=== PATIENT | male | born 1970 | race Caucasian/White ===

== ENCOUNTER 2020-06-02 14:50 | Inpatient (IN) | payer OTHER, SELFPAY ==
[~2020-06-02] VITALS: Ht 162.6 cm; Wt 85.7 kg
[2020-06-02 15:00] VITALS: BP 124/90
--- NOTE | 2020-06-02 15:10 | NUR ---
LABS COLLECTED AND SENT TO LAB
--- NOTE | 2020-06-02 15:10 | NUR ---
TAKEN TO BED 2
--- NOTE | 2020-06-02 15:10 | NUR ---
49 YO M [facility] FAM[facility] FOR C/C OF SOB AND COVID SYMPTOMS X2 WEEKS. PT PRESENTS AT 33% ON ROOM AIR, DIAPHOTETIC AND WITH A TEMP OF 102. ERMD/RT CALLED TO BEDSIDE IMMEDIATELY. IV STARTED IMMEDIATELY AT BEDSIDE. PT PLACED ON BIPAP MACHINE AND IS SATING AT 99%. EQUAL CHEST RISE AND FALL. PATIENT ACCESS COORDINATOR PULSE OX IN PLACE. BED LOCKED AND IN LOWEST POSITION. SIDE RAILS X1. Addendum: 06/02/20 at 1800 by [email or web address] 49 YO M [facility] FOR C/C OF SOB AND COVID SYMPTOMS X2 WEEKS. PT PRESENTS AT 33% ON ROOM AIR, DIAPHOTETIC AND WITH A TEMP OF 102.8. ERMD/RT CALLED TO BEDSIDE IMMEDIATELY. IV STARTED IMMEDIATELY AT BEDSIDE. PT PLACED ON BIPAP MACHINE AND IS SATING AT 99%. EQUAL CHEST RISE AND FALL. PATIENT ACCESS COORDINATOR PULSE OX IN PLACE. BED LOCKED AND IN LOWEST POSITION. SIDE RAILS X1.
--- NOTE | 2020-06-02 15:10 | NUR ---
ERMD AND RT AT BEDSIDE FOR PT 33% ON RA
[2020-06-02] MEDS ORDERED: AZITHROMYCIN 500 MG in DEXTROSE 5% 250 ML IV ONE (15:15)
[2020-06-02] MEDS ORDERED: ACETAMINOPHEN EXTRA STRENGTH 500 MG TAB PO ONE (15:15)
[2020-06-02] MEDS ORDERED: DEXAMETHASONE 4 MG/ML VIAL IVP ONE (15:15)
[2020-06-02] MEDS ORDERED: cefTRIAXone 1,000 MG VIAL ONE (15:21)
--- NOTE | 2020-06-02 15:30 | NUR ---
EKG AT BEDSIDE
[2020-06-02 15:38] LABS: BASOPHILS % (AUTO) 0.1 % (0.0-2.0); HEMATOCRIT 39.3 % (36-52); HEMOGLOBIN 13.7 g/dL (12.0-18.0); LYMPHOCYTES # (AUTO) 1.2 K/uL (2.0-11.5); LYMPHOCYTES % (AUTO) 9.1 % (20.5-51.1); MEAN CORPUSCULAR HEMOGLOBIN 29 pg (27-31); MEAN CORPUSCULAR HGB CONC 35 g/dL (33-37); MEAN CORPUSCULAR VOLUME 82.8 fL (80-94); MONOCYTES # (AUTO) 0.6 K/uL (0.8-1.0); MONOCYTES % (AUTO) 4.3 % (1.7-9.3); NEUTROPHILS # (AUTO) 11.1 K/uL (1.8-7.7); NEUTROPHILS % (AUTO) 86.5 % (42.2-75.2); PLATELET COUNT (AUTO) 407 K/uL (140-450); RED BLOOD CELL COUNT(AUTO) 4.75 MIL/uL (4.20-6.10); RED CELL DISTRIBUTION WIDTH 13.9 % (11.6-13.7); WHITE BLOOD COUNT (AUTO) 12.8 K/uL (4.8-10.8)
[2020-06-02] MEDS ORDERED: fentaNYL citrate 0.05 MG/ML VIAL IVP ONE (15:50)
[2020-06-02] MEDS ORDERED: KETOROLAC 30 MG/ML VIAL IVP ONE (15:50)
--- NOTE | 2020-06-02 15:50 | NUR ---
RAD AT BEDSIDE
[2020-06-02 15:53] LABS: ALBUMIN 2.4 g/dL (3.4-5.0); ANION GAP 15.9 (8-16); CARBON DIOXIDE 23.6 mmol/L (21-32); CREATININE 1.3 mg/dL (0.6-1.3); POTASSIUM 3.5 mmol/L (3.5-5.1); TOTAL BILIRUBIN 0.4 mg/dL (0.0-1.0)
[2020-06-02] MEDS ORDERED: NACL 0.9% 1,000 ML IV ONE (16:00)
[2020-06-02 16:04] VITALS: BP 110/77
[2020-06-02 16:04] LABS: APPEARANCE,URINE SL CLOUDY (CLEAR); BILIRUBIN,URINE 1+ (NEGATIVE); BLOOD, URINE 1+ (NEGATIVE); COLOR,URINE YELLOW (YELLOW); LEUKOCYTE ESTERASE ,URINE NEGATIVE (NEGATIVE); NITRITE, URINE NEGATIVE (NEGATIVE); UGLUCOSE NEGATIVE (NEGATIVE)
[2020-06-02 16:05] LABS: PROTHROMBIN TIME 9.9 secs (10.8-13.4)
[2020-06-02 16:11] LABS: CKMB RELATIVE INDEX 0.4 (0.0-2.5); CREATINE KINASE MB 1.7 ng/mL (0-3.6)
[2020-06-02] MEDS ORDERED: ALBUTEROL SULFATE/IPRATROPIU 3 ML SOL IH ONE ×2 (16:20→17:36)
[2020-06-02 16:23] LABS: RBC,URINE 11-20 (MOD) /HPF (0-5); WBC,URINE 0-5 /HPF (0-5)
[2020-06-02 16:25] LABS: C-REACTIVE PROTEIN QUANT 28.6 mg/dL (0.0-0.9)
[2020-06-02] MEDS ORDERED: AZITHROMYCIN 500 MG INJ VIAL IV ONE (16:27)
--- NOTE | 2020-06-02 17:00 | NUR ---
PTS TEMP DECREASED TO 99.0
--- NOTE | 2020-06-02 17:45 | NUR ---
RT AT BEDSIDE PERFORMING INH TREATMENT
--- NOTE | 2020-06-02 18:10 | NUR ---
CHERIE: [phone] SON ASHLEY: [phone]
[2020-06-02] MEDS ORDERED: BENA20TA PO (18:15)
--- NOTE | 2020-06-02 19:18 | NUR ---
REPORT GIVEN TO ALINE SYKES. TRANSFER OF CARE AT THIS TIME.
--- NOTE | 2020-06-02 19:30 | NUR ---
Monica garg in [facility] - 06/03/20 at 0325 by MARLO A/W LAB RESULTS FOR POSSIBLE TRANSFER TO [place].
--- NOTE | 2020-06-02 22:00 | NUR ---
ALL RESULTS BACK AND NOTED BY ERMD AND FOR ADMISSION
--- NOTE | 2020-06-02 22:00 | NUR ---
Patient appears to be resting comfortably in bed. Vital Signs within normal limits. Respirations even and unlabored.ON BI PAP TOLERATING WELL
--- NOTE | 2020-06-02 22:38 | NUR ---
Patient will be admitted to care of DR. HANNAH LENZ. Admited to TELEMETRY. Will go to room 105 B. Belongings list completed.
[2020-06-02] MEDS ORDERED: MORPHINE SULFATE 2 MG/ML SYR IVP PRN (22:40)
[2020-06-02] MEDS ORDERED: ALBUTEROL HFA MDI 90 MCG/ACTUATION 8 GM INH PRN (22:40)
[2020-06-02] MEDS ORDERED: ZOLPIDEM 5 MG TAB PO PRN (22:40)
[2020-06-02] MEDS ORDERED: DOCUSATE SODIUM 100 MG GELCAP PO PRN (22:40)
[2020-06-02] MEDS ORDERED: POTASSIUM CHLORIDE 10 MEQ TABER PO PRN (22:40)
[2020-06-02] MEDS ORDERED: MAG SULF 2000 MG/WATER PREMIX 50 ML IV PRN (22:40)
[2020-06-02] MEDS ORDERED: LORazepam 2 MG/ML VIAL IM/IVP PRN (22:40)
[2020-06-02] MEDS ORDERED: HYDROcodone/APAP 5/325 MG 1 TAB TAB PO PRN (22:40)
[2020-06-02] MEDS ORDERED: ONDANSETRON 4 MG/2 ML VIAL IM/IVP PRN (22:40)
[2020-06-02 23:17] LABS: BARBITURATE, URINE NEGATIVE ng/ml (NEG <=200); BENZODIAZEPINE, URINE NEGATIVE ng/mL (NEG <=200); CANNABINOID, URINE NEGATIVE ng/mL (NEG <=50); COCAINE, URINE NEGATIVE ng/mL (NEG <=300); OPIATE, URINE NEGATIVE ng/mL (NEG <=2000); PHENCYCLIDINE SCREEN,URINE NEGATIVE ng/mL (NEG <=25)
[2020-06-02] MEDS: NACL 0.9% 1,000 ML IV SCH (23:30)
--- NOTE | 2020-06-03 01:00 | NUR ---
STILL A/W AVAILABILITY OF BEDS. PATIENT WITH BIPAP COMFORTABLY , IPAP 16 , EPAP 8 RATE 20.
[2020-06-03] MEDS ORDERED: remdesivir COMMUNICATION ORDER 1 EA MISC MC PRN ×2 (03:05→13:25)
--- NOTE | 2020-06-03 04:00 | NUR ---
REPORT GIVEN TO KASSIDY MIRELES.
--- NOTE | 2020-06-03 05:08 | NUR ---
SENT TO THE FLOOR WITH RT , RN, EMT WITH [facility] ANGEL, ON ACLS TRANSPORT.
[2020-06-03 05:30] VITALS: BP 119/67
--- NOTE | 2020-06-03 05:30 | NUR ---
PT ARRIVED FROM ER TO UNIT VIA GURNEY ACCOMPANIED BY RN, RT, AND EMT. PT AAOX4, AMBULATORY, ABLE TO MAKE NEEDS KNOWN. PT CALM AND COOPERATIVE TO CARE. PT ON BIPAP, RESPIRATIONS EVEN AND UNLABORED. PT NOT IN DISTRESS. LUNG SOUNDS ARE COARSE. PT NOTED WITH NON-PRODUCTIVE COUGH. ABDOMEN IS SOFT AND NON-TENDER, ACTIVE BOWEL SOUNDS NOTED. SKIN IS WARM, DRY, AND INTACT. NO EDEMA NOTED. PT WITH IV ACCESS ON RIGHT AC G18 PATENT AND INTACT, IVF INFUSING WELL. PT DENIES ANY PAIN OR DISCOMFORT AT THIS TIME. NO REQUESTS MADE. PT WELCOMED AND ORIENTED TO ROOM. VS TAKEN, STABLE. MRSA SWAB DONE. PT HOOKED TO TELE MONITORING. POC DISCUSSED. PT VERBALIZED UNDERSTANDING. PT KEPT COMFORTABLE. SAFETY MEASURES IN PLACE. CALL LIGHT WITHIN REACH. WILL CONTINUE TO MONITOR.
--- NOTE | 2020-06-03 07:37 | NUR ---
rec'd pt on homa v60 bipap settings 16/8 rr20 fio2 65% alarms on and audible and bvm at hob and bipap is plugged into red outlet, pt is wearing large face mask and b\s are diminished bilaterally, pt is sleeping at this time.
[2020-06-03 08:00] VITALS: BP 137/71
--- NOTE | 2020-06-03 08:09 | NUR ---
ENDORSED TO DAY SHIFT NURSE FOR CONTINUITY OF CARE
--- NOTE | 2020-06-03 08:51 | NUR ---
PATIENT HAS BEEN SCREENED AND CATEGORIZED MODERATE NUTRITION RISK. PATIENT WILL BE SEEN WITHIN 3-5 DAYS OF ADMISSION. 06/05/20 06/07/[address]
[2020-06-03] MEDS ORDERED: AZITHROMYCIN 500 MG in DEXTROSE 5% 250 ML IV SCH (09:00)
--- NOTE | 2020-06-03 09:00 | NUR ---
RECEIVED PATIENT IN BED AWAKE A/OX4, WITH BIPAP SATING 92%. ABLE TO MAKE NEEDS KNOWN. NO COMPLAIN OF PAIN , RESP DISTRESS NOTED PT REQUESTED TO BE OFF FOR A FEW MINUTES. TRIED BIPAP OFF TO DRINK WATER BUT PT DE SAT TO 82% CHECKED WITH RT PT STILL DE SAT EXPLAIN TO THE PT HE NEEDED TO BE ON BIPAP AND AWAITING FOR THE WATCH CASE POLISHER TO COME AND SEE HIM. IV SITE ON RT AC GAUGE 18 INTACT AND PATENT IVF INFUSING WELL. DUE MEDS GIVEN TOLERATED WELL. VITALS STABLE WILL CONTINUE TO MONITOR.
[2020-06-03] MEDS: ASCORBIC ACID 500 MG TAB PO SCH (09:39)
[2020-06-03] MEDS: ZINC SULF 220 MG CAP PO SCH ×2 (09:40→20:55)
[2020-06-03] MEDS: VITAMIN D 400 IU TAB PO SCH (09:40)
[2020-06-03] MEDS: ENOXAPARIN 100 MG/ML SYR SUBQ SCH ×2 (10:23→21:01)
[2020-06-03 11:19] LABS: BASOPHILS % (AUTO) 0.1 % (0.0-2.0); HEMATOCRIT 40.4 % (36-52); HEMOGLOBIN 13.6 g/dL (12.0-18.0); LYMPHOCYTES # (AUTO) 0.6 K/uL (2.0-11.5); LYMPHOCYTES % (AUTO) 4.1 % (20.5-51.1); MEAN CORPUSCULAR HEMOGLOBIN 28 pg (27-31); MEAN CORPUSCULAR HGB CONC 34 g/dL (33-37); MEAN CORPUSCULAR VOLUME 83.8 fL (80-94); MONOCYTES # (AUTO) 0.5 K/uL (0.8-1.0); MONOCYTES % (AUTO) 3.5 % (1.7-9.3); NEUTROPHILS # (AUTO) 12.9 K/uL (1.8-7.7); NEUTROPHILS % (AUTO) 92.3 % (42.2-75.2); PLATELET COUNT (AUTO) 313 K/uL (140-450); RED BLOOD CELL COUNT(AUTO) 4.83 MIL/uL (4.20-6.10)
--- NOTE | 2020-06-03 11:54 | NUR ---
SOCIAL WORK NOTE: Patient's Orientation Unable To Assess Information Provided By HAILE JEAN - Comments SW WAS UNABLE TO MEET PATIENT AT BEDSIDE DUE TO MEDICAL CONDITION. SW COMPLETED ASSESSMENT WITH PATIENT'S . Grain Blender, Realtionship and Phone Number HAILE HEBERT [phone] Healthcare Power of Engraved Roller Inspector No Does Patient Have a POLST No Identifying Problems No Social Work Triggers Is A Social Work Consult Needed No Mandate Report Filed No Explanation Of Identifying Problems PATIENT IS A 49-YEAR-OLD MALE ADMITTED FOR COVID, PNA, SEPSIS, AND HYPOXIA. PATIENT HAS PMHX OF HYPERTENSION. PATIENT'S REPORTED NO HISTORY OF SUBSTANCE ABUSE OR MENTAL HEALTH. Admitted From Home Pre-Admission Level Of Functioning Status Independent/Ambulatory Level Of Functioning Comment PATIENT'S REPORTED THAT PATIENT WAS INDEPENDENT WITH ALL ADLS AT BASELINE. Prior Resources/Services Used In Last 12 Months No Prior Resources Used Prior DME No Prior DME Used Dialysis Comments N/A Living Situation Lives With Family House Other Living Situation/Comment PATIENT'S REPORTED THAT PATIENT LIVES WITH AND CHILDREN. Patient Had Caregiver No Home Support No Caregiver Issues Financial Issues No Known Financial Issue Referral To The Financial Counselor Needed No Factors/Needs No D/C Needs Identified Pt/Rep Participated In Discharge Plan Yes Patient/Family Agress With Discharge Plan Yes Discharge Plan Comments TENTATIVE DISCHARGE PLAN IS FOR PATIENT TO RETURN HOME. DC Plan Status Initiated
[2020-06-03 12:00] VITALS: BP 119/71
[2020-06-03 12:17] LABS: ALBUMIN 2.4 g/dL (3.4-5.0); ANION GAP 13.9 (8-16); CARBON DIOXIDE 28.3 mmol/L (21-32); CHOL/HDL RATIO 7.2 (1-4.5); CREATININE 1.2 mg/dL (0.6-1.3); MAGNESIUM 2.4 mg/dL (1.8-2.4); PHOSPHORUS 4.3 mg/dL (2.5-4.9); POTASSIUM 5.2 mmol/L (3.5-5.1); TOTAL BILIRUBIN 0.4 mg/dL (0.0-1.0)
[2020-06-03] MEDS ORDERED: CLINICAL MONITORING MC PRN (13:45)
--- NOTE | 2020-06-03 13:45 | NUR ---
placed pt on nrb at 100% plus nc at 6l as per pt o2 sat 95%
--- NOTE | 2020-06-03 14:30 | NUR ---
DR MELLISSA SAVAGE VISITED PATIENT CHANGED TO NON REBREATHER MASK 15L SATING 96% TOLERATED WELL
[2020-06-03] MEDS ORDERED: REMDESIVIR (EUA) 200 MG in NACL 0.9% 100 ML IV SCH (15:00)
[2020-06-03 16:00] VITALS: BP 129/76
[2020-06-03] MEDS: NACL 0.9% 1,000 ML IV SCH (16:28)
[2020-06-03 20:00] VITALS: BP 118/69
--- NOTE | 2020-06-03 21:15 | NUR ---
PT IS A/OX4, MONGOLIAN SPEAKING, HEAD IS NORMOCEPHALIC, EQUAL BILATERAL EYEBROWS, SYMMETRICAL SMILE, PMMM. TRACH MIDLINE, NO JVD NOTED AT THIS TIME. CHEST IS SYMMETRICAL, BREATHING SPONTANEOUSLY ON 15L 02 VIA NON-REBREATHER MASK, RESPIRATIONS EVEN AND UNLABORED. TELE MONITOR ATTACHED. ABD IS SOFT AND NON-TENDER, ACTIVE BOWEL TONES NOTED. SKIN IS WARM, SMOOTH, CDI, IV IS PATENT AND ASYMPTOMATIC. NORMAL SKIN TURGOR NOTED. ADMINISTERED SCHEDULED MEDICATIONS, EDUCATION RENDERED. SAFETY PRECAUTIONS IN PLACE. ALL STAFF TO OBSERVE ISOLATION PRECAUTION.
--- NOTE | 2020-06-03 23:16 | NUR ---
PT IS SLEEPING. VISIBLE CHEST RISE NOTED.
[2020-06-03] MEDS: ACETAMINOPHEN 325 MG TAB PO PRN (23:36)
--- NOTE | 2020-06-03 23:45 | NUR ---
LAB REPORTED THAT THE PT'S TROP LEVE IS 1.117. DR HERNANDEZ WAS INFORMED. ORDER IS TO CONTINUE LOVENOX.
[2020-06-04] VITALS: BP 112/76
[2020-06-04] MEDS: ACETAMINOPHEN 325 MG TAB PO PRN (00:46)
--- NOTE | 2020-06-04 01:15 | NUR ---
PT IS SLEEPING. NO SIGNS OF DISTRESS AT THIS TIME.
--- NOTE | 2020-06-04 03:18 | NUR ---
PT IS SLEEPING, NO SIGNS OF DISTRESS.
--- NOTE | 2020-06-04 05:10 | NUR ---
PT IS SLEEPING.
[2020-06-04 06:33] VITALS: BP 122/70
--- NOTE | 2020-06-04 07:25 | NUR ---
RECEIVED ENDORSEMENT FROM SHOVEL LOG LOADER OPERATOR, AWAKE,ALERT, ORIENTEDX4, WITH O2 AT 15L/MIN VIA NON-REBREATHER MASK, NON LABORED, SATURATING AT 89%, NOT IN DISTRESS NOTED. SKIN WARM TO TOUCH AND INTACT. WITH ONGOING IV FLUID WITH 0.9% NS AT 60ML/HOUR INFUSING AT LEFT AC G20 IV CANNULA NOTED. SAFETY MEASURES IN PLACE AND CONTINUE MONITOR.
[2020-06-04 08:08] LABS: T4 (THYROXINE) 7.8 ug/dL (4.5-12.0)
[2020-06-04 08:19] LABS: BASOPHILS % (AUTO) 0.1 % (0.0-2.0); HEMATOCRIT 40.3 % (36-52); HEMOGLOBIN 13.4 g/dL (12.0-18.0); LYMPHOCYTES # (AUTO) 0.5 K/uL (2.0-11.5); LYMPHOCYTES % (AUTO) 3.5 % (20.5-51.1); MEAN CORPUSCULAR HEMOGLOBIN 28 pg (27-31); MEAN CORPUSCULAR HGB CONC 33 g/dL (33-37); MEAN CORPUSCULAR VOLUME 84.9 fL (80-94); MONOCYTES # (AUTO) 0.3 K/uL (0.8-1.0); MONOCYTES % (AUTO) 2.3 % (1.7-9.3); NEUTROPHILS # (AUTO) 13.3 K/uL (1.8-7.7); NEUTROPHILS % (AUTO) 94.1 % (42.2-75.2); PLATELET COUNT (AUTO) 361 K/uL (140-450); RED BLOOD CELL COUNT(AUTO) 4.75 MIL/uL (4.20-6.10); RED CELL DISTRIBUTION WIDTH 13.8 % (11.6-13.7); WHITE BLOOD COUNT (AUTO) 14.2 K/uL (4.8-10.8)
[2020-06-04 08:42] LABS: ALBUMIN 2.2 g/dL (3.4-5.0); ANION GAP 9.1 (8-16); CARBON DIOXIDE 28.2 mmol/L (21-32); CREATININE 1.1 mg/dL (0.6-1.3); MAGNESIUM 2.3 mg/dL (1.8-2.4); PHOSPHORUS 3.5 mg/dL (2.5-4.9); POTASSIUM 4.3 mmol/L (3.5-5.1); TOTAL BILIRUBIN 0.4 mg/dL (0.0-1.0)
[2020-06-04] MEDS: NACL 0.9% 1,000 ML IV SCH (08:51)
[2020-06-04] MEDS: VITAMIN D 400 IU TAB PO SCH (08:53)
[2020-06-04] MEDS: ASCORBIC ACID 500 MG TAB PO SCH (08:54)
[2020-06-04] MEDS: ZINC SULF 220 MG CAP PO SCH ×2 (08:54→20:15)
[2020-06-04] MEDS: ENOXAPARIN 100 MG/ML SYR SUBQ SCH ×2 (08:55→20:15)
--- NOTE | 2020-06-04 09:05 | NUR ---
FULLY AWAKE AND ALERT, DUE MEDICATION GIVEN, NOT IN DISTRESS NOTED
[2020-06-04] MEDS ORDERED: remdesivir CLINICAL MONITORING 1 EA MISC MC PRN (11:25)
[2020-06-04 12:00] VITALS: BP 128/80
[2020-06-04] MEDS ORDERED: REMDESIVIR (EUA) 100 MG in NACL 0.9% 100 ML IV SCH (12:00)
--- NOTE | 2020-06-04 12:15 | NUR ---
DISCHARGE PLANNING: SPOKE TO DAVID JOSSE MOTA OF [facility] AT [phone] AND SHE STATED 06/03 IS APPROVED AUTH [id number]. SHE ALSO REQUESTED TO SEND DAILY CLINICAL UPDATES FOR REVIEW. WILL FOLLOW UP. Addendum: 06/04/20 at 1228 by Nataliia Verdugo THIS IS A 49 Y/O MALE PATIENT FROM HOME, WHO CAME IN DUE TO WORSENING SOB AND BODY ACHES. PAST MEDICAL HISTORY INCLUDE HTN. INITIAL DIAGNOSIS OF COVID, PNA, HYPOXIC RESPIRATORY FAILURE. CURRENT LABS INCLUDE WBC 14.2, H/H 13.4/40.3, NA/K 135/4.3, BUN/CREA 26/1.1, TROP 1.664, FIBRINOGEN 500, D DIMER >5000. RAPID COVID TEST PENDING. ON BIPAP, FIO2 65%, O2 SAT 93%. SEEN BY PULMO - OFF BIPAP CONT WEAN O2, FULL DOSE ANTICOAGULATION, ENCOURAGE SELF PRONING. SEEN BY ID - CONTACT AND DROPLET PRECAUTION, CONT DEXA, ADD REMDESIVIR AND CONVALESCENT PLASMA. DC PLAN PENDING ON PATIENT'S RESPONSE TO TREATMENT.
--- NOTE | 2020-06-04 12:48 | NUR ---
FULLY AWAKE AND ALERT, DUE MEDICATION GIVEN, NOT IN DISTRESS NOTED, VITAL SIGNS TAKEN
--- NOTE | 2020-06-04 14:11 | NUR ---
FULLY AWAKE, NOT IN DISTRESS NOTED
--- NOTE | 2020-06-04 14:58 | NUR ---
BLOOD BANK CONTACTED IF PLASMA IS AVAILABLE, PER THE BLOOD BANK PERSONNEL MS ABBASI IS READY, FOR 1 HOUR THAWING
[2020-06-04 16:00] VITALS: BP 135/78
--- NOTE | 2020-06-04 17:30 | NUR ---
1 UNIT CONVALESCENT PLASMA 209ML STARTED, INDEPENDENT DOUBLE CHECKED DONE AND VERIFIED BY SECOND RN. INSTRUCTED TO VERBALIZED ANY SIGNS AND SYMPTOMS NOTED. VERBALIZED UNDERSTANDING.
--- NOTE | 2020-06-04 18:00 | NUR ---
WITH ONGOING CONVALESCENT PLASMA TRANSFUSION, VITAL SIGNS TAKEN AND RECORDED, NOT IN DISTRESS NOTED
--- NOTE | 2020-06-04 18:35 | NUR ---
ABOVE CONVALESCENT PLASMA TRANSFUSION COMPLETED, NO ADVERSE REACTION NOTED. DINNER SERVED, ABLE TO FEED HIMSELF, CONTINUE MONITOR
--- NOTE | 2020-06-04 18:45 | NUR ---
VITAL SIGNS TAKEN AND RECORDED, STABLE AND NOT IN DISTRESS NOTED.
--- NOTE | 2020-06-04 19:05 | NUR ---
RECEIVED BEDSIDE REPORT FROM DAY SHIFT NURSE FOR CONTINUITY OF CARE. PT IS AWAKE AND ALERT, A&OX4. UZBEK SPEAKING. ON 5L O2 NC WITH 15L O2 NONREBREATHER. SR ON TELE MONITORING. PT IS AMBULATORY INDEPENDENTLY. SKIN IS WARM, DRY, AND INTACT. IV IS IN THE RIGHT AC 18 GAUGE RUNNING NS AT 60. PLASMA HAS JUST FINISHED INFUSING PER DAY SHIFT NURSE. DROPLET PRECAUTIONS IN PLACE FOR COVID POSITIVE RESULT. TROPONIN AND D DIMER ELEVATED, DOCTOR NOTIFIED PER DAY SHIFT NURSE. PT IS STABLE AT THIS TIME. PLAN OF CARE DISCUSSED.
--- NOTE | 2020-06-04 19:20 | NUR ---
ENDORSED TO HVAC/R INSTRUCTOR IN STABLE CONDITION FOR CONTINUITY OF CARE
[2020-06-04 20:00] VITALS: BP 138/82
--- NOTE | 2020-06-04 21:30 | NUR ---
PT IS AWAKE AND ALERT. LAYING IN HIGH FOWLERS POSITION WITH NONREBREATHER IN PLACE. NRB HAS 15L O2 AND 5L O2 NC IN PLACE. O2 SAT IS 90%. RT IS AT BEDSIDE TALKING TO PT ABOUT USING THE BIPAP MASK AT NIGHT FOR SLEEP. PT VERBALIZED UNDERSTANDING. RT WILL PLACE ON PT WHEN PT IS READY TO SLEEP FOR THE NIGHT. PT IS STABLE AT THIS TIME.
--- NOTE | 2020-06-04 23:30 | NUR ---
PT IS SLEEPING. NRB MASK WAS READJUSTED AND O2 SAT IS 92%. PT DECIDED TO SLEEP WITH OUT BIPAP. BREATHING IS STABLE AND NO DISTRESS NOTED.
[2020-06-05] VITALS: BP 123/82
--- NOTE | 2020-06-05 00:05 | NUR ---
RECEIVED CRITICAL LABS FROM [employer]. TROPONIN IS TRENDING DOWN AT 0.715.
[2020-06-05] MEDS: NACL 0.9% 1,000 ML IV SCH (00:40)
--- NOTE | 2020-06-05 02:00 | NUR ---
PT IS SLEEPING. NO DISTRESS NOTED. CHEST RISE AND FALL SYMMETRICAL. O2 SAT AT 96%. IV FLUIDS ARE PATENT AND INFUSING. WILL CONTINUE TO MONITOR.
[2020-06-05 04:00] VITALS: BP 156/93
--- NOTE | 2020-06-05 04:00 | NUR ---
PT IS AWAKE AND STABLE AT THIS TIME. NRB IS IN PLACE ALONG WITH NC. O2 SAT IS 90%. NO DISTRESS NOTED. IV IS INFUSING AND PATENT. BED IS IN THE LOWEST POSITION AND CELL PHONE IS WITHIN REACH.
--- NOTE | 2020-06-05 06:00 | NUR ---
PT IS SLEEPING BUT EASILY AWOKEN WHEN CALLED BY NAME. PT IS STABLE. NO DISTRESS NOTED.
--- NOTE | 2020-06-05 07:05 | NUR ---
ENDORSED PT TO DAY SHIFT NURSE FOR CONTINUITY OF CARE. PT IS STABLE AT THIS TIME. PLAN OF CARE DISCUSSED. O2 SAT IS 96%. BREATHING IS UNLABORED.
--- NOTE | 2020-06-05 07:10 | NUR ---
RECEIVED ENDORSEMENT FROM RESIDENTIAL DIRECTOR, AWAKE,ALERT, ORIENTEDX4, WITH O2 AT 15L/MIN VIA NON REBREATHER MASK +O2 AT 5L/MIN VIA NC, SATURATING AT 89-90%, MILD TACHYPNEIC NOTED, RR-24BPM. NO SOB CLAIMED,WITH ONGOING IV FLUID WITH 0.9% NS AT 60ML/HOUR INFUSING AT RT AC G18 IV CANNULA NOTED. SAFETY MEASURES IN PLACE AND CONTINUE MONITOR.
--- NOTE | 2020-06-05 07:39 | NUR ---
PATIENT CALLED AND COMPLAINED OF DIFFICULTY OF BREATHING, APPARENTLY HE IS TACHYPNEIC RR-35, O2SAT -61% AT 15L/MIN VIA NON REBREATHER +5L/MIN VIA NC. RT CALLED TO COME AND RAPID RESPONSE TEAM.
--- NOTE | 2020-06-05 07:45 | NUR ---
APPARENTLY HIS BREATHING BECAME SLOW AND NOT RESPONDING, CALLED A CODE. CRASH CART AT BEDSIDE AND ATTACHED TO CHEST PADS. PULSE IS WEAK. CHEST COMPRESSION INITIATED.
--- NOTE | 2020-06-05 07:47 | NUR ---
CODE TEAM ARRIVED WITH DR. ROSALES, ER PHYSICIAN.
[2020-06-05 08:00] VITALS: BP 154/88
[2020-06-05] MEDS ORDERED: DOPPLER MC ONE (08:08)
--- NOTE | 2020-06-05 08:09 | NUR ---
NO SIGNS OF LIFE, NO PULSE NOTED. PATIENT AT 0809H PRONOUNCED BY DR. ROSALES, ER PHYSICIAN, INDUSTRIAL ROOFER AR BEDSIDE AND MADE AWARE. IMMEDIATE FAMILY CONTACTED BUT NO ANSWER
--- NOTE | 2020-06-05 08:15 | NUR ---
[facility] CONTACTED AND SPOKE WITH WITH NICO, WITH REFERENCE NUMBER [id number] [phone]
--- NOTE | 2020-06-05 08:19 | NUR ---
IMMEDIATE FAMILY, THE SON MR EZEQUIEL LOVE CONTACTED AND MADE AWARE ABOUT THE PATIENT .
[2020-06-05 08:26] LABS: BASOPHILS % (AUTO) 0.1 % (0.0-2.0); EOSINOPHILS % (AUTO) 0.1 % (0.0-4.0); HEMATOCRIT 39.9 % (36-52); HEMOGLOBIN 13.3 g/dL (12.0-18.0); LYMPHOCYTES # (AUTO) 0.6 K/uL (2.0-11.5); LYMPHOCYTES % (AUTO) 4.1 % (20.5-51.1); MEAN CORPUSCULAR HEMOGLOBIN 28 pg (27-31); MEAN CORPUSCULAR HGB CONC 33 g/dL (33-37); MEAN CORPUSCULAR VOLUME 84.9 fL (80-94); MONOCYTES # (AUTO) 0.2 K/uL (0.8-1.0); MONOCYTES % (AUTO) 1.4 % (1.7-9.3); NEUTROPHILS # (AUTO) 12.8 K/uL (1.8-7.7); NEUTROPHILS % (AUTO) 94.3 % (42.2-75.2); PLATELET COUNT (AUTO) 282 K/uL (140-450); RED CELL DISTRIBUTION WIDTH 13.7 % (11.6-13.7); WHITE BLOOD COUNT (AUTO) 13.6 K/uL (4.8-10.8)
--- NOTE | 2020-06-05 08:31 | NUR ---
[facility] CONTACTED AND SPOKE WITH HERON, CALL BACK NUMBER GIVEN, ACCORDING TO HER THE CMM PROGRAMMER WILL CALL BACK
[2020-06-05 08:59] LABS: ALBUMIN 2.3 g/dL (3.4-5.0); CARBON DIOXIDE 26.1 mmol/L (21-32); CREATININE 0.9 mg/dL (0.6-1.3); MAGNESIUM 2.2 mg/dL (1.8-2.4); POTASSIUM 4.1 mmol/L (3.5-5.1); TOTAL BILIRUBIN 0.6 mg/dL (0.0-1.0)
--- NOTE | 2020-06-05 09:01 | NUR ---
SON CAME ACCOMPANIED BY DIRECTOR PEOPLESOFT MS ESPAÑA IN THE ROOM. EMPATHY OFFERED.
--- NOTE | 2020-06-05 09:23 | NUR ---
[facility] OFFICE CALLED AND SPOKE WITH FOOD SERVICE CLERKSHERIFF Goyo DOLAN, ACCORDING TO HIM THEY WILL NOT TAKE THE BODY DUE TO NATURAL , HIS NUMBER [phone]. PATROL SERGEANT PATRIA MADE AWARE.
--- NOTE | 2020-06-05 11:02 | NUR ---
THE SON DECIDED FOR [facility] AND CONTACTED TO ANTIQUE FURNITURE REPAIRER THE [employer], ACCORDING TO MS TRINIDAD THE BODY WILL ANTIQUE FURNITURE REPAIRER WITH IN 2 HOURS. WATER RIGHTS SPECIALIST MADE AWARE.
--- NOTE | 2020-06-05 11:11 | NUR ---
SON MR NIEVES CONTACTED AND MADE AWARE THAT THE BODY WILL BE MULTIM[employer]IA INSTRUCTIONAL DESIGNER BY MORTUARY WITH IN 2 HOURS
--- NOTE | 2020-06-05 17:48 | NUR ---
[facility] CONTACTED, ACCORDING TO THE STAFF THEY WILL CALL THE HOSPITAL FOR THE ETA. SECURITY PAGE TO BATH SOLUTION MAKER THE [employer].
--- NOTE | 2020-06-05 18:34 | NUR ---
[facility] TRANSFER [place] [facility] [place] MR. ADONAY RANKIN, ER/ICU DIRECTOR ASSISTED BY BECCA.
== END 2020-06-05 08:09 | disposition expired | DRG 871 ==
LOC: MED 14:50 → MTU 18:32
PROC: 5A09357 Assistance with Respiratory Ventilation, Less than 24 Consecutive Hours, Continuous Positive Airway Pressure (ICD-10-PCS; principal; 2020-06-02)
PROC: XW033E5 Introduction of Remdesivir Anti-infective into Peripheral Vein, Percutaneous Approach, New Technology Group 5 (ICD-10-PCS; 2020-06-03)
PROC: XW13325 Transfusion of Convalescent Plasma (Nonautologous) into Peripheral Vein, Percutaneous Approach, New Technology Group 5 (ICD-10-PCS; 2020-06-04)
PROC: 5A12012 Performance of Cardiac Output, Single, Manual (ICD-10-PCS; 2020-06-05)
PROC: 0BH17EZ Insertion of Endotracheal Airway into Trachea, Via Natural or Artificial Opening (ICD-10-PCS; 2020-06-05)
DX: A41.9 Sepsis, unspecified organism (principal); U07.1 COVID-19; J12.89 Other viral pneumonia; E43 Unspecified severe protein-calorie malnutrition; J96.01 Acute respiratory failure with hypoxia; E87.1 Hypo-osmolality and hyponatremia; N39.0 Urinary tract infection, site not specified; I46.9 Cardiac arrest, cause unspecified; I10 Essential (primary) hypertension; R77.8 Other specified abnormalities of plasma proteins; R74.01 Elevation of levels of liver transaminase levels; E86.0 Dehydration; Z79.899 Other long term (current) drug therapy
CPT/HCPCS: 36415; 36600; 71045; 80053; 80305; 81001; 82550; 82553; 82728; 82803; 83036; 83605; 83615; 83690; 83735; 83880; 84100; 84134; 84436; 84443; 84484; 85025; 85379; 85384; 85610; 85651; 85730; 86140; 86886; 86900; 86901; 87040; 87081; 87086; 87804; 93005; 96365; 96367; 96375; 99291; J0456; J0696; J1100; J1650; J1885; J3010; J7060; P9017